=== PATIENT | female | born 1960 | race Caucasian/White ===

== ENCOUNTER 2017-07-28 14:07 | Emergency (ER) | payer BC ==
[~2017-07-28] VITALS: Ht 157.5 cm; Wt 103.5 kg
[2017-07-28 14:18] VITALS: BP 183/99; PULSE 81; RESP 16; TEMP 98.9; O2SAT 96
[2017-07-28] MEDS ORDERED: TETANUS/DIPHTHERIA TOXOID ADULT 0.5 ML VIAL IM ONE (15:15)
--- NOTE | 2017-07-28 15:57 | RADRPT ---
EXAM DATE/TIME: 07/28/2017 15:23 [facility] COMPARISON: No previous studies available for comparison. INDICATIONS : Fell today, right 5th finger pain MEDICAL HISTORY : None. SURGICAL HISTORY : None. ENCOUNTER: Initial ACUITY: 1 day PAIN SCORE: 4/10 LOCATION: Right 5th finger FINDINGS: Examination of the fifth digit of the right hand demonstrates no evidence of fracture or dislocation. No radiopaque foreign bodies are seen. There is mild soft tissue swelling at the base of the finger . CONCLUSION: Mild soft tissue swelling. No acute fracture or joint dislocation. Edvin Romano MD on July 28, 2017 at 15:55 Board Certified Radiologist. This report was verified electronically.
--- NOTE | 2017-07-28 15:58 | RADRPT ---
EXAM DATE/TIME: 07/28/2017 15:27 [facility] COMPARISON: No previous studies available for comparison. INDICATIONS : Right knee pain from fall today MEDICAL HISTORY : None. SURGICAL HISTORY : None. ENCOUNTER: Initial ACUITY: 1 day PAIN SCORE: 4/10 LOCATION: Right knee FINDINGS: The bony structures are grossly intact. There is moderate degenerative arthritis right knee joint wit h narrowing of the medial joint compartment. There is narrowing of the patellofemoral joint. No joint effusion is demonstrated. No acute fracture or joint dislocation. Soft tissues are unremarkable. CONCLUSION: 1. No acute fracture or joint dislocation. 2. Moderate primary degenerative arthritis with narrowing of the medial joint compartment. Edvin Romano MD on July 28, 2017 at 15:56 Board Certified Radiologist. This report was verified electronically.
--- NOTE | 2017-07-28 16:21 | PD ---
HPI Chief Complaint: Fall Time Seen by Provider: 15:09 Travel History International Travel<30 days: No Contact w/Intl Traveler<30days: No Traveled to known affect area: No History of Present Illness HPI 56-year-old female complains of laceration to the nose, right fifth finger pain and right knee pain. Patient fell this morning. Patient denies loss of consciousness. Patient denies any headache or neck pain. Patient denies any visual change. Patient denies any chest pain or shortness of breath. Patient denies abdominal pain. Patient denies any back pain. Patient went sharp pain localized to right fifth finger and diffusely over the anterior lateral aspect the right knee. Patient denies any focal weakness and numbness of extremity. Patient states that she is not up-to-date with TD booster. Patient states that her right fifth finger was out of joint and angulated sideway. Patient put it back together by herself. PFSH Past Medical History Medical History: Denies Significant Hx Diminished Hearing: No Tetanus Vaccination: Unknown ?: Not Social History Alcohol Use: Yes (RARE) Tobacco Use: No Substance Use: No Allergies-Medications (Allergen,Severity, Reaction): Coded Allergies: No Known Allergies (Unverified , 07/28/17) Reported Meds & Prescriptions Reported Meds & Active Scripts Active No Active Prescriptions or Reported Medications Review of Systems General / Constitutional: No: Fever Eyes: No: Visual changes HENT: No: Headaches Cardiovascular: No: Chest Pain or Discomfort Respiratory: No: Shortness of Breath Gastrointestinal: No: Abdominal Pain Genitourinary: No: Dysuria Musculoskeletal: Positive: Pain Skin: No Rash Neurologic: No: Weakness Psychiatric: No: Depression Endocrine: No: Polydipsia Hematologic/Lymphatic: No: Easy Bruising Physical Exam Narrative GENERAL: Well-nourished, well-developed patient. SKIN: Focused skin assessment warm/dry. HEAD: Normocephalic. EYES: No scleral icterus. No injection or drainage. NECK: Supple, trachea midline. No JVD or lymphadenopathy. CARDIOVASCULAR: Regular rate and rhythm without murmurs, gallops, or rubs. RESPIRATORY: Breath sounds equal bilaterally. No accessory muscle use. GASTROINTESTINAL: Abdomen soft, non-tender, nondistended. MUSCULOSKELETAL: Patient had ecchymosis swelling tenderness diffuse over the right fifth finger. Patient had mild tenderness on palpation prepatellar area of the right knee. Full range of motion knee. Knee joints stable. No effusion noted. BACK: Nontender without obvious deformity. No CVA tenderness. Patient has an evulsion laceration about 1 cm at the base of the bridge of the nose. Patient had multiple abrasions to the area of the nose and upper and lower lips and chin. No tenderness on palpation bony structure. Data Data Last Documented VS Vital Signs Date Time Temp Pulse Resp B/P (MAP) Pulse Ox O2 Delivery O2 Flow Rate FiO2 07/28/17 14:18 98.9 81 16 183/99 (127) 96 Orders Orders Tetanus/Diphtheria Tox Adult (Tetanus/Di (07/28/17 15:15) Finger ([id number]) (07/28/17 15:12) Knee, Ltd (1 Or 2vws) (07/28/17 15:12) MDM Medical Decision Making Medical Screen Exam Complete: Yes Emergency Medical Condition: Yes Interpretation(s) Last Impressions Knee X-Ray 07/28/17 1512 Signed Impressions: Service Date/Time: Friday, July 28, 2017 15:27 - CONCLUSION: 1. No acute fracture or joint dislocation. 2. Moderate primary degenerative arthritis with narrowing of the medial joint compartment. Edvin Romano MD Finger X-Ray 07/28/17 1512 Signed Impressions: Service Date/Time: Friday, July 28, 2017 15:23 - CONCLUSION: Mild soft tissue swelling. No acute fracture or joint dislocation. Edvin Romano MD Differential Diagnosis Differential diagnosis including laceration, abrasion, contusion, fracture, dislocation. Narrative Course 56-year-old female with facial injury, right fifth finger injury and right knee injury. TD booster given. Dermabond applied to the laceration to the nose. Procedures Procedure Narrative Saline wash. Dermabond applied to nose laceration. Diagnosis Primary Impression: Laceration of nose Qualified Codes: S01.21XA - Laceration without foreign body of nose, initial encounter Additional Impressions: Dislocation, finger closed Qualified Codes: S63.259A - Unspecified dislocation of unspecified finger, initial encounter Contusion of right knee Qualified Codes: S80.01XA - Contusion of right knee, initial encounter Patient Instructions: General Instructions Additional Instructions: Keep the wound clean and dry for 7 days. Take Advil Tylenol as needed for pain. Follow-up with orthopedist if persistent problem. Med/Other Pt SpecificInfo: Prescription(s) given Scripts No Active Prescriptions or Reported Meds Disposition: 01 DISCHARGE HOME Condition: Stable Angus Fernandes MD Jul 28, 2017 16:21
== END 2017-07-28 16:31 | disposition home or self-care (01) ==
LOC: PHEFT 14:07
DX: S01.21XA Laceration without foreign body of nose, initial encounter (principal); S63.259A Unspecified dislocation of unspecified finger, initial encounter; S80.01XA Contusion of right knee, initial encounter; Z23 Encounter for immunization; Z72.89 Other problems related to lifestyle; W19.XXXA Unspecified fall, initial encounter
CPT/HCPCS: 12011; 73140; 73560; 90471; 90714

== ENCOUNTER 2017-08-07 14:00 | Inpatient (IN) | payer BC ==
[~2017-08-07] VITALS: Ht 157.5 cm; Wt 111.9 kg
[2017-08-07] VITALS (7 sets, daily range): BP systolic 158–236; BP diastolic 80–109; PULSE 66–103; RESP 16–24; TEMP 99–103.1; O2SAT 95–97
--- NOTE | 2017-08-07 14:09 | PD ---
HPI Chief Complaint: right flank pain, fever Time Seen by Provider: 14:08 Travel History International Travel<30 days: No Contact w/Intl Traveler<30days: No Traveled to known affect area: No History of Present Illness HPI 56-year-old female came to the emergency room with history of right-sided flank pain that started last night. She is a diabetic. Patient said the pain was getting worse and hence she came to the emergency room. She was also getting fever and chills. Her temperature in the ER was 2.5. Patient appears to be uncomfortable. Pain is mostly in the right flank area and does not radiate much. It is just there at all times and gets worse when she tries to walk or lays on the side. No history of hematuria. [facility] Past Medical History Narrative Medical List of her past medical, surgical, social and family history is reviewed from the nursing note. Diminished Hearing: No Social History Alcohol Use: Yes (RARE) Tobacco Use: No Substance Use: No Allergies-Medications (Allergen,Severity, Reaction): Coded Allergies: No Known Allergies (Unverified , 07/28/17) Comments No known drug allergies Reported Meds & Prescriptions Reported Meds & Active Scripts Active Narrative Medication List of her home medications reviewed from the nursing note. Review of Systems Except as stated in HPI: all other systems reviewed are Neg General / Constitutional: Positive: Fever, Chills Genitourinary: Positive: Flank Pain Physical Exam Narrative GENERAL: Awake, alert, obese, moderate distress SKIN: Focused skin assessment warm/dry. Scabs on the bridge of his nose HEAD: Atraumatic. Normocephalic. EYES: Pupils equal and round. No scleral icterus. No injection or drainage. ENT: No nasal bleeding or discharge. Mucous membranes pink and moist. NECK: Trachea midline. No JVD. CARDIOVASCULAR: Regular rate and rhythm. No murmur appreciated. RESPIRATORY: No accessory muscle use. Clear to auscultation. Breath sounds equal bilaterally. GASTROINTESTINAL: Abdomen soft, non-tender, nondistended. Hepatic and splenic margins not palpable. significant right CVA tenderness MUSCULOSKELETAL: No obvious deformities. No clubbing. No cyanosis. No edema. NEUROLOGICAL: Awake and alert. No obvious cranial nerve deficits. Motor grossly within normal limits. Normal speech. PSYCHIATRIC: Appropriate mood and affect; insight and judgment normal. Data Data Last Documented VS Orders Orders Sepsis Workup Initiated (08/07/17 ) Complete Blood Count With Diff (08/07/17 14:14) Comprehensive Metabolic Panel (08/07/17 14:14) Lactic Acid Sepsis Protocol (08/07/17 14:14) Urinalysis - C+S If Indicated (08/07/17 14:14) Blood Culture (08/07/17 14:14) Chest, Single Ap (08/07/17 14:14) Blood Glucose (08/07/17 14:14) Ecg Monitoring (08/07/17 14:14) Iv Access Insert/Monitor (08/07/17 14:14) Oximetry (08/07/17 14:14) Oxygen Administration (08/07/17 14:14) Ct Abd/Pel W/O Iv Contrast (08/07/17 14:14) Sodium Chlor 0.9% 1000 Ml Inj (Ns 1000 M (08/07/17 14:14) Sodium Chlor 0.9% 1000 Ml Inj (Ns 1000 M (08/07/17 14:14) Sodium Chlor 0.9% 1000 Ml Inj (Ns 1000 M (08/07/17 14:14) Sodium Chlor 0.9% 1000 Ml Inj (Ns 1000 M (08/07/17 14:14) Ketorolac Inj (Toradol Inj) (08/07/17 14:15) Morphine Inj (Morphine Inj) (08/07/17 14:15) Ondansetron Inj (Zofran Inj) (08/07/17 14:15) Acetaminophen (Tylenol) (08/07/17 14:30) Influenzae A/B Antigen (08/07/17 15:01) ^ Straight Catheter (08/07/17 15:44) Ceftriaxone Inj (Rocephin Inj) (08/07/17 16:00) Urine Culture (08/07/17 15:50) Admit Order (Ed Use Only) (08/07/17 16:42) Labs Laboratory Tests Test 08/07/17 14:30 08/07/17 15:50 White Blood Count 9.6 TH/MM3 Red Blood Count 4.49 MIL/MM3 Hemoglobin 12.1 GM/DL Hematocrit 36.6 % Mean Corpuscular Volume 81.4 FL Mean Corpuscular Hemoglobin 27.0 PG Mean Corpuscular Hemoglobin Concent 33.1 % Red Cell Distribution Width 12.9 % Platelet Count 260 TH/MM3 Mean Platelet Volume 8.0 FL Neutrophils (%) (Auto) 81.4 % Lymphocytes (%) (Auto) 10.0 % Monocytes (%) (Auto) 6.4 % Eosinophils (%) (Auto) 0.0 % Basophils (%) (Auto) 2.2 % Neutrophils # (Auto) 7.8 TH/MM3 Lymphocytes # (Auto) 1.0 TH/MM3 Monocytes # (Auto) 0.6 TH/MM3 Eosinophils # (Auto) 0.0 TH/MM3 Basophils # (Auto) 0.2 TH/MM3 CBC Comment DIFF FINAL Differential Comment Blood Urea Nitrogen 9 MG/DL Creatinine 0.91 MG/DL Random Glucose 247 MG/DL Total Protein 7.9 GM/DL Albumin 3.3 GM/DL Calcium Level 8.6 MG/DL Alkaline Phosphatase 76 U/L Aspartate Amino Transf (AST/SGOT) 13 U/L Alanine Aminotransferase (ALT/SGPT) 19 U/L Total Bilirubin 0.8 MG/DL Sodium Level 131 MEQ/L Potassium Level 3.5 MEQ/L Chloride Level 97 MEQ/L Carbon Dioxide Level 25.8 MEQ/L Anion Gap 8 MEQ/L Estimat Glomerular Filtration Rate 64 ML/MIN Hemoglobin A1c 6.9 % Lactic Acid Level 1.9 mmol/L Urine Color YELLOW Urine Turbidity CLEAR Urine pH 6.0 Urine Specific [place] 1.016 Urine Protein 30 mg/dL Urine Glucose (UA) NEG mg/dL Urine Ketones NEG mg/dL Urine Occult Blood TRACE Urine Nitrite NEG Urine Bilirubin NEG Urine Leukocyte Esterase TRACE Urine RBC 0-3 /hpf Urine WBC 15-19 /hpf Urine WBC Clumps FEW Urine Squamous Epithelial Cells 0-5 /hpf Urine Bacteria FEW /hpf Microscopic Urinalysis Comment CATH-CULTURE IND [facility] Medical Decision Making Medical Screen Exam Complete: Yes Emergency Medical Condition: Yes Medical Record Reviewed: Yes Differential Diagnosis Sepsis, UTI, pyelonephritis, infected stone Narrative Course 2:52 PM blood test results are back. Patient has some hyperglycemia and the CBC shows left shift although total WBC is within normal limits. CT scan digestive of a recently passed stone. Waiting for the UA. Case will be signed over to the oncoming ER physician. Influenza was negative. Procedures EKG Prior to Arrival: No Scripts Ciprofloxacin (Cipro) 500 Mg Tab 500 MG PO Q12HR for Infection, #12 TAB Prov: Ilir Sheldon DO 08/10/17 Metformin ER (Metformin ER) 500 Mg Jacquelin 500 MG PO BID for Blood Sugar Management, #60 TAB 0 Refills With evening meal Prov: Ilir Sheldon DO 08/10/17 Lisinopril (Lisinopril) 10 Mg Tab 10 MG PO DAILY for Blood Pressure Management, #90 TAB 3 Refills Prov: Ilir Sheldon DO 08/10/17 Nifedipine ER 24 HR (Nifedipine ER 24 HR) 60 Mg Tab 60 MG PO DAILY for Blood Pressure Management, #90 TAB 3 Refills Prov: Ilir Sheldon DO 08/10/17 Naseem Parson MD Aug 07, 2017 14:08
[2017-08-07] MEDS ORDERED: SODIUM CHLOR 0.9% 1000 ML INJ 1,000 ML IV ONE ×3 (14:14)
[2017-08-07] MEDS ORDERED: SODIUM CHLOR 0.9% 1000 ML INJ 300 ML IV ONE (14:14)
[2017-08-07] MEDS ORDERED: ONDANSETRON HCL 4 MG/2 ML VIAL IV PUSH ONE (14:15)
[2017-08-07] MEDS ORDERED: MORPHINE SULFATE 4 MG/ML INJ IV PUSH ONE (14:15)
[2017-08-07] MEDS ORDERED: KETOROLAC TROMETHAMINE 30 MG/ML (IVP) VIAL IV PUSH ONE (14:15)
[2017-08-07] MEDS ORDERED: ACETAMINOPHEN 325 MG TAB PO ONE (14:30)
[2017-08-07 14:43] LABS: AUTOMATED NEUTROPHIL # 7.8 TH/MM3 (1.8-7.7); BASOPHIL # 0.2 TH/MM3 (0-0.2); BASOPHIL % 2.2 % (0.0-2.0); HEMATOCRIT 36.6 % (35.0-46.0); HEMO FLAGS DIFF FINAL; MEAN CELL VOLUME 81.4 FL (80.0-100.0); MEAN CORPUSCULAR HGB CONC 33.1 % (32.0-36.0); MONO % 6.4 % (0.0-8.0); NEUT % 81.4 % (16.0-70.0); PLATELET COUNT 260 TH/MM3 (150-450); RED BLOOD COUNT 4.49 MIL/MM3 (4.00-5.30); RED CELL DISTRIBUTION WIDTH 12.9 % (11.6-17.2); WHITE BLOOD COUNT 9.6 TH/MM3 (4.0-11.0)
--- NOTE | 2017-08-07 14:48 | RADRPT ---
EXAM DATE/TIME: 08/07/2017 14:32 [facility] COMPARISON: No previous studies available for comparison. INDICATIONS : Cough. MEDICAL HISTORY : None. SURGICAL HISTORY : None. ENCOUNTER: Initial ACUITY: 1 day PAIN SCORE: 0/10 LOCATION: Right chest FINDINGS: A single view of the chest demonstrates the lungs to be symmetrically aerated without evidence of mas s, infiltrate or effusion. The cardiomediastinal contours are unremarkable. Osseous structures are intact. CONCLUSION: 1. No acute cardiopulmonary disease. Benja Fisher MD on August 07, 2017 at 14:45 Board Certified Radiologist. This report was verified electronically.
[2017-08-07 14:55] LABS: CHLORIDE 97 MEQ/L (98-107); POTASSIUM 3.5 MEQ/L (3.5-5.1); SODIUM (NA) 131 MEQ/L (136-145)
[2017-08-07 14:59] LABS: ANION GAP 8 MEQ/L (5-15); BICARBONATE 25.8 MEQ/L (21.0-32.0); BLOOD UREA NITROGEN 9 MG/DL (7-18)
[2017-08-07 15:02] LABS: ALT (GPT) 19 U/L (10-53); AST (GOT) 13 U/L (15-37); GLOMERULAR FILTRATION RATE 64 ML/MIN (>89)
[2017-08-07 15:03] LABS: TOTAL BILIRUBIN ADULT 0.8 MG/DL (0.2-1.0)
[2017-08-07 15:05] LABS: ALKALINE PHOSPHATASE 76 U/L (45-117)
--- NOTE | 2017-08-07 15:48 | RADRPT ---
EXAM DATE/TIME: 08/07/2017 15:25 [facility] COMPARISON: No previous studies available for comparison. INDICATIONS : Right sided flank pain. ORAL CONTRAST: No oral contrast ingested. RADIATION DOSE: 21.39 CTDIvol (mGy) MEDICAL HISTORY : None SURGICAL HISTORY : Orthopedic surgery. ENCOUNTER: Initial ACUITY: 1 day PAIN SCALE: 5/10 LOCATION: Right flank TECHNIQUE: Volumetric scanning of the abdomen and pelvis was performed. Using automated exposure control and ad justment of the mA and/or kV according to patient size, radiation dose was kept as low as reasonably achievable to obtain optimal diagnostic quality images. DICOM format image data is available electro nically for review and comparison. FINDINGS: LOWER LUNGS: The visualized lower lungs are clear. LIVER: Homogeneous density without lesion. There is no dilation of the biliary tree. Cholecystectomy clips SPLEEN: Normal size without lesion. PANCREAS: Within normal limits. KIDNEYS: There is some mild stranding around the right kidney more than the left. There is a stone in the lowe r pole of the right kidney anteriorly. There is a large calcification stone in the lower pole left ki dney measuring 7 x 13 mm. There is slight prominence of the right renal collecting system. I do not s ee any stone down either ureter.. ADRENAL GLANDS: Within normal limits. VASCULAR: There is no aortic aneurysm. BOWEL/MESENTERY: The stomach, small bowel, and colon demonstrate no acute abnormality. There is no free intraperitone al air or fluid. ABDOMINAL WALL: Within normal limits. RETROPERITONEUM: There is no lymphadenopathy. BLADDER: No wall thickening or mass. REPRODUCTIVE: Within normal limits. INGUINAL: There is no lymphadenopathy or hernia. MUSCULOSKELETAL: Within normal limits for patient age. CONCLUSION: Some inflammatory changes around the right kidney may indicate a recently passed right renal calculus . There is one stone seen within the right kidney and a large stone in left kidney. I do not see any stones in the bladder. Rest of study is unremarkable status post cholecystectomy. Dominik Forrester MD on August 07, 2017 at 15:43 Board Certified Radiologist. This report was verified electronically.
[2017-08-07] MEDS ORDERED: cefTRIAXone INJ 1,000 MG in SODIUM CHLORIDE 0.9% INJ 100 ML IV ONE (16:00)
[2017-08-07 16:05] LABS: GLUCOSE,URINE NEG (NEG); KETONE, URINE NEG (NEG); NITRITE,URINE NEG (NEG)
[2017-08-07 16:16] LABS: BLOOD, URINE TRACE (NEG); URINE COLOR YELLOW (YELLW/STRAW)
[2017-08-07 16:17] LABS: RBC, URINE 0-3 /hpf (0-3); WBC, URINE 15-19 /hpf (0-5)
[2017-08-07 16:18] LABS: BACTERIA, URINE FEW /hpf; COMMENT (UR) CATH-CULTURE IND; CULTURE IF INDICATED CATH CULTURE IND; SQUAMOUS EPITHELIAL CELL URINE 0-5 /hpf (0-5)
[2017-08-07] MEDS ORDERED: PHENAZOPYRIDINE HCL 200 MG TAB PO PRN (16:45)
[2017-08-07] MEDS ORDERED: SODIUM CHLORIDE 0.9% FLUSH 10 ML FLUSH IV FLUSH PRN (16:45)
[2017-08-07] MEDS ORDERED: GLUCAGON 1 MG/ML VIAL OTHER PRN (16:45)
[2017-08-07] MEDS ORDERED: DEXTROSE 50% IN WATER 50 ML VIAL(D50) IV PUSH PRN (16:45)
[2017-08-07] MEDS ORDERED: ENALAPRILAT 1.25 MG/ML VIAL IV PUSH PRN (16:45)
[2017-08-07] MEDS ORDERED: ONDANSETRON HCL 4 MG/2 ML VIAL IV PUSH PRN (16:45)
--- NOTE | 2017-08-07 16:47 | PD ---
Data Data Last Documented VS Vital Signs Date Time Temp Pulse Resp B/P (MAP) Pulse Ox O2 Delivery O2 Flow Rate FiO2 08/07/17 15:55 100.8 80 20 192/96 (128) 95 Room Air Orders Orders Sepsis Workup Initiated (08/07/17 ) Complete Blood Count With Diff (08/07/17 14:14) Comprehensive Metabolic Panel (08/07/17 14:14) Lactic Acid Sepsis Protocol (08/07/17 14:14) Urinalysis - C+S If Indicated (08/07/17 14:14) Blood Culture (08/07/17 14:14) Chest, Single Ap (08/07/17 14:14) Blood Glucose (08/07/17 14:14) Ecg Monitoring (08/07/17 14:14) Iv Access Insert/Monitor (08/07/17 14:14) Oximetry (08/07/17 14:14) Oxygen Administration (08/07/17 14:14) Ct Abd/Pel W/O Iv Contrast (08/07/17 14:14) Sodium Chlor 0.9% 1000 Ml Inj (Ns 1000 M (08/07/17 14:14) Sodium Chlor 0.9% 1000 Ml Inj (Ns 1000 M (08/07/17 14:14) Sodium Chlor 0.9% 1000 Ml Inj (Ns 1000 M (08/07/17 14:14) Sodium Chlor 0.9% 1000 Ml Inj (Ns 1000 M (08/07/17 14:14) Ketorolac Inj (Toradol Inj) (08/07/17 14:15) Morphine Inj (Morphine Inj) (08/07/17 14:15) Ondansetron Inj (Zofran Inj) (08/07/17 14:15) Acetaminophen (Tylenol) (08/07/17 14:30) Influenzae A/B Antigen (08/07/17 15:01) ^ Straight Catheter (08/07/17 15:44) Ceftriaxone Inj (Rocephin Inj) (08/07/17 16:00) Urine Culture (08/07/17 15:50) Admit Order (Ed Use Only) (08/07/17 16:42) Labs Laboratory Tests Test 08/07/17 14:30 08/07/17 15:50 White Blood Count 9.6 TH/MM3 Red Blood Count 4.49 MIL/MM3 Hemoglobin 12.1 GM/DL Hematocrit 36.6 % Mean Corpuscular Volume 81.4 FL Mean Corpuscular Hemoglobin 27.0 PG Mean Corpuscular Hemoglobin Concent 33.1 % Red Cell Distribution Width 12.9 % Platelet Count 260 TH/MM3 Mean Platelet Volume 8.0 FL Neutrophils (%) (Auto) 81.4 % Lymphocytes (%) (Auto) 10.0 % Monocytes (%) (Auto) 6.4 % Eosinophils (%) (Auto) 0.0 % Basophils (%) (Auto) 2.2 % Neutrophils # (Auto) 7.8 TH/MM3 Lymphocytes # (Auto) 1.0 TH/MM3 Monocytes # (Auto) 0.6 TH/MM3 Eosinophils # (Auto) 0.0 TH/MM3 Basophils # (Auto) 0.2 TH/MM3 CBC Comment DIFF FINAL Differential Comment Blood Urea Nitrogen 9 MG/DL Creatinine 0.91 MG/DL Random Glucose 247 MG/DL Total Protein 7.9 GM/DL Albumin 3.3 GM/DL Calcium Level 8.6 MG/DL Alkaline Phosphatase 76 U/L Aspartate Amino Transf (AST/SGOT) 13 U/L Alanine Aminotransferase (ALT/SGPT) 19 U/L Total Bilirubin 0.8 MG/DL Sodium Level 131 MEQ/L Potassium Level 3.5 MEQ/L Chloride Level 97 MEQ/L Carbon Dioxide Level 25.8 MEQ/L Anion Gap 8 MEQ/L Estimat Glomerular Filtration Rate 64 ML/MIN Lactic Acid Level 1.9 mmol/L Urine Color YELLOW Urine Turbidity CLEAR Urine pH 6.0 Urine Specific [place] 1.016 Urine Protein 30 mg/dL Urine Glucose (UA) NEG mg/dL Urine Ketones NEG mg/dL Urine Occult Blood TRACE Urine Nitrite NEG Urine Bilirubin NEG Urine Leukocyte Esterase TRACE Urine RBC 0-3 /hpf Urine WBC 15-19 /hpf Urine WBC Clumps FEW Urine Squamous Epithelial Cells 0-5 /hpf Urine Bacteria FEW /hpf Microscopic Urinalysis Comment CATH-CULTURE IND MDM Supervised Visit with EDITA: No Narrative Course The patient was initially evaluated by the previous provider and signed out to me at the beginning of my shift pending UA and disposition. See her note for further details. Briefly this a 56-year-old female who presented with right flank pain and fever. Patient reports history of hypertension, however she is no longer on any antihypertensives. She recently moved here from [place] in February of this year and has no local physician. There is family history of diabetes, however she has never been diagnosed with diabetes. She was provided Rocephin, morphine , Toradol, and Tylenol by the previous provider. CBC is unremarkable. Chest x- ray shows no acute disease. CT abdomen pelvis shows some inflammatory changes around the right kidney with one stone within the right kidney and a large stone in the left kidney, no stones in the bladder. Rest of the study is unremarkable. Influenza is negative. UA is suggestive of UTI. On my assessment the patient is resting comfortably. She still complains of some right flank pain, however it is significantly improved. She is having some generalized weakness. Again she has never been diagnosed with diabetes, and her blood sugar today is 247. There is family history of diabetes. Initial blood pressure was 236/109, and after her pain was controlled, repeat blood pressure is 196/93. Patient meets SIRS criteria, and with pyelonephritis with new onset diabetes as well as uncontrolled blood pressure she'll be admitted for overnight observation for further treatment and evaluation. Case discussed with hospitalist AYLEEN Taylor. The patient will be admitted to their service under Dr. Sheldon. The patient was made aware of all findings and is amenable with this plan. Diagnosis Primary Impression: Pyelonephritis Additional Impressions: SIRS (systemic inflammatory response syndrome) Uncontrolled hypertension Hyperglycemia Admitting Information Admitting Physician Requests: Observation Scripts No Active Prescriptions or Reported Meds aRmses Moody MD Aug 07, 2017 16:47
[2017-08-07] MEDS ORDERED: MORPHINE SULFATE 4 MG/ML INJ IV PUSH PRN (17:00)
--- NOTE | 2017-08-07 18:07 | HHI.HP ---
HPI Service [facility] Primary Care Physician No Primary Care Physician Admission Diagnosis Pyelonephritis, SIRS, Hyperglycemia, Uncontrolled BP Diagnoses: Chief Complaint: Right flank pain, fever, chills. Travel History International Travel<30 Days: No Contact w/Intl Traveler <30 Da: No Traveled to Known Affected Are: No Sepsis Criteria SIRS Criteria (2 or more): Temp > 100.9 or < 96.8, Heart rate over 90 Sepsis Criteria (SIRS+source): Infect source susp/known Criteria Outcome: Meets SIRS criteria, Meets sepsis criteria History of Present Illness Ms. Cabral is a pleasant 56-year-old female with history of arthritis who presents to the emergency department on 08/07/2017 due to right flank pain, chills, subjective fever. Her symptoms started last night. She does not report any dysuria, hematuria. No recent antibiotics use. Nothing seems to make her symptoms better or worse. She reports mild pain on the left side as well. Patient denies any chest pain, shortness of breath, cough, abdominal pain. No nausea vomiting. Upon arrival WBC 9.6, hemoglobin 12.1. Sodium 131, potassium 3.5, creatinine 0.91. Random glucose 247. Temperature 103.1, pulse 103, respiration 24, blood pressure 236/109, O2 saturation 97% on room air. Blood pressure later improved to 159/84. CT abdomen shows inflammatory changes around the right kidney. Review of Systems Except as stated in HPI: all other systems reviewed are Neg Past Family Social History Past Medical History Arthritis Undiagnosed diabetes mellitus Past Surgical History Cholecystectomy, meniscus repair Reported Medications Neosporin topical Allergies: Coded Allergies: No Known Allergies (Unverified , 07/28/17) Family History Mother from myocardial infarction. Dad with diabetes. Social History Patient denies using tobacco or illicit drugs. She drinks socially. Physical Exam Vital Signs Vital Signs Date Time Temp Pulse Resp B/P (MAP) Pulse Ox O2 Delivery O2 Flow Rate FiO2 08/07/17 17:10 67 16 159/84 (109) 95 08/07/17 15:55 100.8 80 20 192/96 (128) 95 Room Air 08/07/17 15:17 95 08/07/17 15:08 103.1 82 18 196/93 (127) 95 08/07/17 14:05 103.1 103 24 236/109 (151) 97 Room Air Physical Exam GENERAL: This is a well-nourished, well-developed patient, in no apparent distress. SKIN: No rashes, ecchymoses or lesions. Warm and dry. HEAD: Atraumatic. Normocephalic. No temporal or scalp tenderness. EYES: Pupils equal round and reactive. No injection or drainage. ENT: Nose without bleeding, purulent drainage or septal hematoma. Airway patent. NECK: Trachea midline. No lymphadenopathy. Supple, nontender, no meningeal signs. CARDIOVASCULAR: Regular rate and rhythm without murmurs, gallops, or rubs. No JVD. RESPIRATORY: Clear to auscultation. Breath sounds equal bilaterally. No wheezes , rales, or rhonchi. GASTROINTESTINAL: Abdomen soft, non-tender, nondistended. No guarding. Right- sided CVA tenderness. MUSCULOSKELETAL: Extremities without clubbing, cyanosis, or edema. NEUROLOGICAL: Awake and alert. Cranial nerves II through XII intact. No focal neurological deficits. Normal speech. Laboratory Laboratory Tests Test 08/07/17 14:30 08/07/17 15:50 White Blood Count 9.6 Red Blood Count 4.49 Hemoglobin 12.1 Hematocrit 36.6 Mean Corpuscular Volume 81.4 Mean Corpuscular Hemoglobin 27.0 Mean Corpuscular Hemoglobin Concent 33.1 Red Cell Distribution Width 12.9 Platelet Count 260 Mean Platelet Volume 8.0 Neutrophils (%) (Auto) 81.4 Lymphocytes (%) (Auto) 10.0 Monocytes (%) (Auto) 6.4 Eosinophils (%) (Auto) 0.0 Basophils (%) (Auto) 2.2 Neutrophils # (Auto) 7.8 Lymphocytes # (Auto) 1.0 Monocytes # (Auto) 0.6 Eosinophils # (Auto) 0.0 Basophils # (Auto) 0.2 CBC Comment DIFF FINAL Differential Comment Blood Urea Nitrogen 9 Creatinine 0.91 Random Glucose 247 Total Protein 7.9 Albumin 3.3 Calcium Level 8.6 Alkaline Phosphatase 76 Aspartate Amino Transf (AST/SGOT) 13 Alanine Aminotransferase (ALT/SGPT) 19 Total Bilirubin 0.8 Sodium Level 131 Potassium Level 3.5 Chloride Level 97 Carbon Dioxide Level 25.8 Anion Gap 8 Estimat Glomerular Filtration Rate 64 Lactic Acid Level 1.9 Urine Color YELLOW Urine Turbidity CLEAR Urine pH 6.0 Urine Specific [place] 1.016 Urine Protein 30 Urine Glucose (UA) NEG Urine Ketones NEG Urine Occult Blood TRACE Urine Nitrite NEG Urine Bilirubin NEG Urine Leukocyte Esterase TRACE Urine RBC 0-3 Urine WBC 15-19 Urine WBC Clumps FEW Urine Squamous Epithelial Cells 0-5 Urine Bacteria FEW Microscopic Urinalysis Comment CATH-CULTURE IND Date/Time Source Procedure Growth Status 08/07/17 14:35 Blood Peripheral Aerobic Blood Culture Pending Received 08/07/17 14:35 Blood Peripheral Anaerobic Blood Culture Pending Received 08/07/17 15:08 Nasal Aspirate Influenza Types A,B Antigen (LETICIA) - Final NEGATIVE FOR FLU A AND B ANTIGEN.... Complete 08/07/17 15:50 Urine Catheterized Urine Urine Culture Pending Received Result Diagram: 08/07/17 1430 08/07/17 1430 Imaging Last Impressions Chest X-Ray 08/07/17 1414 Signed Impressions: Service Date/Time: Monday, August 07, 2017 14:32 - CONCLUSION: 1. No acute cardiopulmonary disease. Benja Fisher MD Abdomen/Pelvis CT 08/07/174 Signed Impressions: Service Date/Time: Monday, August 07, 2017 15:25 - CONCLUSION: Some inflammatory changes around the right kidney may indicate a recently passed right renal calculus. There is one stone seen within the right kidney and a large stone in left kidney. I do not see any stones in the bladder. Rest of study is unremarkable status post cholecystectomy. Dominik Forrester MD Caprini VTE Risk Assessment Caprini VTE Risk Assessment: Mod/High Risk (score >= 2) Caprini Risk Assessment Model Point Value = 1 Point Value = 2 Point Value = 3 Point Value = 5 Age 41-60 Minor surgery BMI > 25 kg/m2 Swollen legs Varicose veins or History of unexplained or recurrent spontaneous Oral contraceptives or hormone replacement Sepsis (< 1 month) Serious lung disease, including pneumonia (< 1 month) Abnormal pulmonary function Acute myocardial infarction Congestive heart failure (< 1 month) History of inflammatory bowel disease Medical patient at bed rest Age 61-74 Arthroscopic surgery Major open surgery (> 45 min) Laparoscopic surgery (> 45 min) Malignancy Confined to bed (> 72 hours) Immobilizing plaster cast Central venous access Age >= 75 History of VTE Family history of VTE Factor V Leiden Prothrombin [id number] Lupus anticoagulant Anticardiolipin antibodies Elevated serum homocysteine Heparin-induced thrombocytopenia Other congenital or acquired thrombophilia Stroke (< 1 month) Elective arthroplasty Hip, pelvis, or leg fracture Acute spinal cord injury (< 1 month) Prophylaxis Regimen Total Risk Factor Score Risk Level Prophylaxis Regimen 0-1 Low Early ambulation 2 Moderate Order ONE of the following: *Sequential Compression Device (SCD) *Heparin 5000 units SQ BID 3-4 Higher Order ONE of the following medications: *Heparin 5000 units SQ TID *Enoxaparin/Lovenox 40 mg SQ daily (WT < 150 kg, CrCl > 30 mL/min) *Enoxaparin/Lovenox 30 mg SQ daily (WT < 150 kg, CrCl > 10-29 mL/min) *Enoxaparin/Lovenox 30 mg SQ BID (WT < 150 kg, CrCl > 30 mL/min) AND/OR *Sequential Compression Device (SCD) 5 or more Highest Order ONE of the following medications: *Heparin 5000 units SQ TID (Preferred with Epidurals) *Enoxaparin/Lovenox 40 mg SQ daily (WT < 150 kg, CrCl > 30 mL/min) *Enoxaparin/Lovenox 30 mg SQ daily (WT < 150 kg, CrCl > 10-29 mL/min) *Enoxaparin/Lovenox 30 mg SQ BID (WT < 150 kg, CrCl > 30 mL/min) AND *Sequential Compression Device (SCD) Assessment and Plan Problem List: (1) Sepsis ICD Code: A41.9 - Sepsis, unspecified organism (2) Pyelonephritis ICD Code: N12 - Tubulo-interstitial nephritis, not specified as acute or chronic Status: Acute (3) Hyperglycemia ICD Code: R73.9 - Hyperglycemia, unspecified Status: Acute (4) Uncontrolled hypertension ICD Code: I10 - Essential (primary) hypertension Status: Acute Assessment and Plan Ms. Cabral is a pleasant 56-year-old female with a history of arthritis who presents to the emergency department due to one-day duration of right flank pain, chills, fever. In the ED workup indicated possible right sided pyelonephritis, sepsis with MAXIMUM TEMPERATURE 103.1F. - Sepsis (temperature 103.1F, pulse 103, respiration 24, suspected infection pyelonephritis) - Acute pyelonephritis - We'll start patient on cefepime 2 g every 12 hours. - Toradol and morphine for pain - Follow urine culture and blood cultures. - Continue normal saline at 100 cc per hour. - Uncontrolled hypertension - We started patient on lisinopril 10 mg daily. Blood pressure improved to 159/84. - If additional antihypertensives as needed we'll consider calcium channel roberth such as amlodipine or nifedipine. - Clonidine when necessary - Hyperglycemia - likely new onset diabetes mellitus. - We'll continue sliding scale insulin for now. Hemoglobin A1c pending. - We'll consider metformin upon discharge. Full code. Jazz. Physician Certification 2 Midnight Certification Type: Admission for Inpatient Services Order for Inpatient Services The services are ordered in accordance with Medicare regulations or non- Medicare payer requirements, as applicable. In the case of services not specified as inpatient-only, they are appropriately provided as inpatient services in accordance with the 2-midnight benchmark. Estimated LOS (days): 2 days is the estimated time the patient will need to remain in the hospital, assuming treatment plan goals are met and no additional complications. Post-Hospital Plan: Home Ilir Sheldon DO Aug 07, 2017 6:07 pm
[2017-08-07] MEDS: INSULIN ASPART SUPPLEMENTAL SCALE SQ SCH ×2 (18:56→21:00)
[2017-08-07] MEDS: LISINOPRIL 10 MG TAB PO SCH (19:02)
[2017-08-07] MEDS: ENOXAPARIN SODIUM 40 MG/0.4 ML SYRINGE SQ SCH (20:25)
[2017-08-07] MEDS: SODIUM CHLORIDE 0.9% FLUSH 10 ML FLUSH IV FLUSH SCH (20:25)
[2017-08-07] MEDS: SODIUM CHLOR 0.9% 1000 ML INJ 1,000 ML IV SCH (21:30)
[2017-08-07] MEDS: CEFEPIME INJ 2,000 MG in SODIUM CHLORIDE 0.9% INJ 100 ML IV SCH (21:30)
[2017-08-07] MEDS: KETOROLAC TROMETHAMINE 30 MG/ML (IVP) VIAL IV PUSH PRN (22:22)
[2017-08-08] VITALS (7 sets, daily range): BP systolic 133–215; BP diastolic 69–98; PULSE 72–95; RESP 18–20; TEMP 99.9–103.4; O2SAT 91–97
[2017-08-08] MEDS: SODIUM CHLOR 0.9% 1000 ML INJ 1,000 ML IV SCH (02:42)
[2017-08-08] MEDS: ACETAMINOPHEN 325 MG TAB PO PRN ×2 (05:05→13:21)
[2017-08-08] MEDS: cloNIDine HCL 0.1 MG TAB PO PRN ×2 (05:05→18:08)
[2017-08-08] MEDS: CEFEPIME INJ 2,000 MG in SODIUM CHLORIDE 0.9% INJ 100 ML IV SCH ×2 (05:05→17:32)
[2017-08-08 06:34] LABS: POTASSIUM 3.4 MEQ/L (3.5-5.1)
[2017-08-08 06:42] LABS: BASOPHIL % 0.1 % (0.0-2.0); EOSINOPHIL # 0.1 TH/MM3 (0-0.4); EOSINOPHIL % 1.1 % (0.0-4.0); HEMATOCRIT 31.5 % (35.0-46.0); HEMO FLAGS DIFF FINAL; LYMPH % 12.5 % (9.0-44.0); LYMPHOCYTE # 1.1 TH/MM3 (1.0-4.8); MEAN CORPUSCULAR HEMOGLOBIN 25.8 PG (27.0-34.0); MONO % 7.5 % (0.0-8.0); NEUT % 78.8 % (16.0-70.0); PLATELET COUNT 226 TH/MM3 (150-450); RED CELL DISTRIBUTION WIDTH 13.9 % (11.6-17.2); WHITE BLOOD COUNT 8.9 TH/MM3 (4.0-11.0)
[2017-08-08 06:59] LABS: BICARBONATE 20.9 MEQ/L (21.0-32.0)
[2017-08-08] MEDS: INSULIN ASPART SUPPLEMENTAL SCALE SQ SCH ×5 (08:00→21:25)
--- NOTE | 2017-08-08 09:06 | HHI.PR ---
Subjective Remarks Follow up for pyelonephritis. Patient is doing well now. However, overnight she had fever, chills. She reports no fever currently and her right flank pain is also much improved. Objective Vitals Vital Signs Date Time Temp Pulse Resp B/P (MAP) Pulse Ox O2 Delivery O2 Flow Rate FiO2 08/08/17 06:15 102.0 148/92 (110) 08/08/17 05:00 103.4 215/98 (137) 08/08/17 00:00 99.9 77 18 170/77 (108) 93 08/07/17 20:00 99.0 66 18 180/80 (113) 96 08/07/17 19:04 158/88 (111) 08/07/17 18:37 08/07/17 17:10 67 16 159/84 (109) 95 08/07/17 15:55 100.8 80 20 192/96 (128) 95 Room Air 08/07/17 15:17 95 08/07/17 15:08 103.1 82 18 196/93 (127) 95 08/07/17 14:05 103.1 103 24 236/109 (151) 97 Room Air I/O 08/07/17 08/07/17 08/07/17 08/08/17 08/08/17 08/08/17 07:00 15:00 23:00 07:00 15:00 23:00 Intake Total 4098 ml 953 ml Output Total 75 ml Balance 4023 ml 953 ml Intake IV Total 4098 ml 953 ml Output Urine Total 75 ml Result Diagram: 08/08/17 0545 08/08/17 0545 Imaging Last Impressions Chest X-Ray 08/07/171413 Signed Impressions: Service Date/Time: Monday, August 07, 2017 14:32 - CONCLUSION: 1. No acute cardiopulmonary disease. Benja Fisher MD Abdomen/Pelvis CT 08/07/171413 Signed Impressions: Service Date/Time: Monday, August 07, 2017 15:25 - CONCLUSION: Some inflammatory changes around the right kidney may indicate a recently passed right renal calculus. There is one stone seen within the right kidney and a large stone in left kidney. I do not see any stones in the bladder. Rest of study is unremarkable status post cholecystectomy. Dominik Forrester MD Objective Remarks GENERAL: Alert, Oriented x 3, NAD. SKIN: Warm and dry. HEAD: Normocephalic. EYES: No scleral icterus. No injection or drainage. NECK: Supple, trachea midline. No JVD or lymphadenopathy. CARDIOVASCULAR: Regular rate and rhythm without murmurs, gallops, or rubs. RESPIRATORY: Breath sounds equal bilaterally. No accessory muscle use. GASTROINTESTINAL: Abdomen soft, non-tender, nondistended. MUSCULOSKELETAL: No cyanosis, or edema. BACK: Nontender without obvious deformity. No CVA tenderness. Procedures None. A/P Problem List: (1) Sepsis ICD Code: A41.9 - Sepsis, unspecified organism (2) Pyelonephritis ICD Code: N12 - Tubulo-interstitial nephritis, not specified as acute or chronic Status: Acute (3) Hyperglycemia ICD Code: R73.9 - Hyperglycemia, unspecified Status: Acute (4) Uncontrolled hypertension ICD Code: I10 - Essential (primary) hypertension Status: Acute Assessment and Plan Ms. Cabral is a pleasant 56-year-old female with a history of arthritis who presents to the emergency department due to one-day duration of right flank pain, chills, fever. In the ED workup indicated possible right sided pyelonephritis, sepsis with MAXIMUM TEMPERATURE 103.1F. - Sepsis (temperature 103.1F, pulse 103, respiration 24, suspected infection pyelonephritis) - Acute pyelonephritis - We'll continue patient on cefepime 2 g every 12 hours. - Patient continues to have persistent fever. We'll consider carbapenems if Urine cx shows resistant organism. - Adjust antibiotics based upon urine culture. - Toradol and morphine for pain - Follow urine culture and blood cultures. - Continue normal saline at 100 cc per hour. - Uncontrolled hypertension - We started patient on lisinopril 10 mg daily. Blood pressure is persistently elevated. - We'll start patient on nifedipine 60 mg daily. - Clonidine when necessary - New onset diabetes mellitus. - Hemoglobin A1c 6.9. - We'll consider metformin upon discharge. -Continue sliding scale insulin. We'll start Levemir 7 units daily at bedtime. Full code. Lovenox. Ilir Sheldon DO Aug 08, 2017 9:06 am
[2017-08-08] MEDS: LISINOPRIL 10 MG TAB PO SCH (09:26)
[2017-08-08] MEDS: SODIUM CHLORIDE 0.9% FLUSH 10 ML FLUSH IV FLUSH SCH ×2 (09:27→21:22)
[2017-08-08 10:05] LABS: HEMOGLOBIN A1b 2.1 %; HEMOGLOBIN Ao 81.4 %; HEMOGLOBIN LA1C 3.2 %; HEMOGLOBIN P3 4.7 %
[2017-08-08] MEDS ORDERED: NIFEdipine 60 MG SUSTAINED RELEASE TAB PO ONE (18:15)
[2017-08-08] MEDS: INSULIN DETEMIR 100 UNITS/ML VIAL SQ SCH ×2 (21:00→21:25)
[2017-08-08] MEDS: ENOXAPARIN SODIUM 40 MG/0.4 ML SYRINGE SQ SCH (21:25)
[2017-08-09] VITALS (7 sets, daily range): BP systolic 131–158; BP diastolic 69–81; PULSE 83–98; RESP 18–22; TEMP 96.6–101.6; O2SAT 91–95
[2017-08-09] MEDS: ACETAMINOPHEN 325 MG TAB PO PRN ×2 (02:49→12:13)
[2017-08-09] MEDS: CEFEPIME INJ 2,000 MG in SODIUM CHLORIDE 0.9% INJ 100 ML IV SCH (05:31)
[2017-08-09] MEDS: LISINOPRIL 10 MG TAB PO SCH (08:39)
[2017-08-09] MEDS: NIFEdipine 60 MG SUSTAINED RELEASE TAB PO SCH (08:39)
[2017-08-09] MEDS: SODIUM CHLORIDE 0.9% FLUSH 10 ML FLUSH IV FLUSH SCH ×2 (08:39→23:00)
[2017-08-09] MEDS: INSULIN ASPART SUPPLEMENTAL SCALE SQ SCH ×4 (08:55→21:00)
[2017-08-09] MEDS: CIPROFLOXACIN 400 MG PREMIX 200 ML IV SCH ×2 (12:13→23:48)
--- NOTE | 2017-08-09 13:39 | HHI.PR ---
Subjective Remarks Follow up for pyelonephritis. Clinically patient is doing very well. She denies any acute concerns. In fact she says that she feels great area denies any right flank pain. She has been having persistent fever. Tolerating diet well. Objective Vitals Vital Signs Date Time Temp Pulse Resp B/P (MAP) Pulse Ox O2 Delivery O2 Flow Rate FiO2 08/09/17 07:30 99.4 83 20 131/78 (95) 94 08/09/17 02:52 101.3 08/09/17 00:00 101.6 98 18 132/81 (98) 91 08/08/17 20:00 101.6 95 18 133/69 (90) 91 08/08/17 15:50 100.6 72 20 174/86 (115) 97 I/O 08/08/17 08/08/17 08/08/17 08/09/17 08/09/17 08/09/17 07:00 15:00 23:00 07:00 15:00 23:00 Intake Total 953 ml 715 ml 340 ml Output Total 200 ml 500 ml 1000 ml Balance 953 ml -200 ml 215 ml -660 ml Intake Oral 715 ml 240 ml IV Total 953 ml 100 ml Output Urine Total 200 ml 500 ml 1000 ml # Voids 2 # Bowel Movements 0 Result Diagram: 08/08/17 0545 08/08/17 0545 Imaging Last Impressions Chest X-Ray 08/07/171413 Signed Impressions: Service Date/Time: Monday, August 07, 2017 14:32 - CONCLUSION: 1. No acute cardiopulmonary disease. Benja Fisher MD Abdomen/Pelvis CT 08/07/171413 Signed Impressions: Service Date/Time: Monday, August 07, 2017 15:25 - CONCLUSION: Some inflammatory changes around the right kidney may indicate a recently passed right renal calculus. There is one stone seen within the right kidney and a large stone in left kidney. I do not see any stones in the bladder. Rest of study is unremarkable status post cholecystectomy. Dominik Forrester MD Objective Remarks GENERAL: Alert, Oriented x 3, NAD. SKIN: Warm and dry. HEAD: Normocephalic. EYES: No scleral icterus. No injection or drainage. NECK: Supple, trachea midline. No JVD or lymphadenopathy. CARDIOVASCULAR: Regular rate and rhythm without murmurs, gallops, or rubs. RESPIRATORY: Breath sounds equal bilaterally. No accessory muscle use. GASTROINTESTINAL: Abdomen soft, non-tender, nondistended. MUSCULOSKELETAL: No cyanosis, or edema. BACK: Nontender without obvious deformity. No CVA tenderness. Procedures None. A/P Problem List: (1) Sepsis ICD Code: A41.9 - Sepsis, unspecified organism (2) Pyelonephritis ICD Code: N12 - Tubulo-interstitial nephritis, not specified as acute or chronic Status: Acute (3) Hyperglycemia ICD Code: R73.9 - Hyperglycemia, unspecified Status: Acute (4) Uncontrolled hypertension ICD Code: I10 - Essential (primary) hypertension Status: Acute Assessment and Plan Ms. Cabral is a pleasant 56-year-old female with a history of arthritis who presents to the emergency department due to one-day duration of right flank pain, chills, fever. In the ED workup indicated possible right sided pyelonephritis, sepsis with MAXIMUM TEMPERATURE 103.1F. - Sepsis (temperature 103.1F, pulse 103, respiration 24, suspected infection pyelonephritis) - Acute pyelonephritis - Urine culture positive for Escherichia coli sensitive to ceftriaxone and fluoroquinolones - Toradol and morphine for pain - We'll start patient on ciprofloxacin 400 mg IV twice a day. - Will switch to PO upon discharge. - Uncontrolled hypertension - Continue nifedipine 60 mg daily, lisinopril 10 mg daily. - Clonidine when necessary - New onset diabetes mellitus. - Hemoglobin A1c 6.9. - We'll consider metformin upon discharge. - Continue sliding scale insulin. We'll increase Levemir from 7 units to 10 units daily at bedtime Full code. Lovenox. Ilir Sheldon DO Aug 09, 2017 1:39 pm
[2017-08-09] MEDS: MUPIROCIN 2% CREAM 15 GM TOPICAL SCH ×2 (15:04→23:03)
[2017-08-09] MEDS: KETOROLAC TROMETHAMINE 30 MG/ML (IVP) VIAL IV PUSH PRN (18:43)
[2017-08-09] MEDS: ENOXAPARIN SODIUM 40 MG/0.4 ML SYRINGE SQ SCH (20:00)
[2017-08-09] MEDS: INSULIN DETEMIR 100 UNITS/ML VIAL SQ SCH (21:00)
[2017-08-10 06:17] LABS: AUTOMATED NEUTROPHIL # 8.5 TH/MM3 (1.8-7.7); BASOPHIL % 0.4 % (0.0-2.0); EOSINOPHIL % 0.3 % (0.0-4.0); HEMATOCRIT 32.3 % (35.0-46.0); HEMO FLAGS DIFF FINAL; LYMPHOCYTE # 1.4 TH/MM3 (1.0-4.8); MEAN CELL VOLUME 81.3 FL (80.0-100.0); MEAN CORPUSCULAR HGB CONC 33.2 % (32.0-36.0); MONO % 7.4 % (0.0-8.0); NEUT % 78.9 % (16.0-70.0); PLATELET COUNT 250 TH/MM3 (150-450); RED BLOOD COUNT 3.97 MIL/MM3 (4.00-5.30); RED CELL DISTRIBUTION WIDTH 13.4 % (11.6-17.2); WHITE BLOOD COUNT 10.7 TH/MM3 (4.0-11.0)
[2017-08-10 06:29] LABS: POTASSIUM 3.1 MEQ/L (3.5-5.1)
[2017-08-10 06:36] LABS: BICARBONATE 22.4 MEQ/L (21.0-32.0)
[2017-08-10 08:00] VITALS: BP 177/85; PULSE 105; RESP 20; TEMP 100.9; O2SAT 93
[2017-08-10] MEDS ORDERED: NIFE60TA8 PO (08:10)
[2017-08-10] MEDS ORDERED: LISI10TA3 PO (08:10)
[2017-08-10] MEDS ORDERED: METF500T4 PO (08:10)
[2017-08-10] MEDS: NIFEdipine 60 MG SUSTAINED RELEASE TAB PO SCH (08:26)
[2017-08-10] MEDS: ACETAMINOPHEN 325 MG TAB PO PRN (08:26)
[2017-08-10] MEDS: LISINOPRIL 10 MG TAB PO SCH (08:27)
[2017-08-10] MEDS: SODIUM CHLORIDE 0.9% FLUSH 10 ML FLUSH IV FLUSH SCH (08:27)
[2017-08-10] MEDS: MUPIROCIN 2% CREAM 15 GM TOPICAL SCH (08:33)
[2017-08-10] MEDS: INSULIN ASPART SUPPLEMENTAL SCALE SQ SCH (08:37)
[2017-08-10] MEDS ORDERED: CIPROFLOXACIN 500 MG TAB PO SCH (09:30)
--- NOTE | 2017-08-10 09:53 | HHI.PR ---
Subjective Remarks Follow up for pyelonephritis. Patient is doing very well. She continues to have persistent fever. However clinically she is significantly improved and feels that she is back to her baseline. She inquires about her diabetes management. Objective Vitals Vital Signs Date Time Temp Pulse Resp B/P (MAP) Pulse Ox O2 Delivery O2 Flow Rate FiO2 08/10/17 08:00 100.9 105 20 177/85 (115) 93 08/09/17 23:57 96.6 95 20 158/78 (104) 93 08/09/17 20:00 99.7 90 22 132/69 (90) 93 08/09/17 15:50 99.8 97 20 147/81 (103) 95 08/09/17 11:50 101.1 95 20 146/71 (96) 95 I/O 08/09/17 08/09/17 08/09/17 08/10/17 08/10/17 08/10/17 07:00 15:00 23:00 07:00 15:00 23:00 Intake Total 340 ml 200 ml 341 ml 680 ml Output Total 1000 ml 1050 ml 1200 ml Balance -660 ml 200 ml -709 ml -520 ml Intake Oral 240 ml 341 ml 480 ml IV Total 100 ml 200 ml 200 ml Output Urine Total 1000 ml 1050 ml 1200 ml # Voids 2 2 # Bowel Movements 1 0 Result Diagram: 08/10/17 0525 08/10/17 0525 Imaging Last Impressions Chest X-Ray 08/07/171413 Signed Impressions: Service Date/Time: Monday, August 07, 2017 14:32 - CONCLUSION: 1. No acute cardiopulmonary disease. Benja Fisher MD Abdomen/Pelvis CT 08/07/171413 Signed Impressions: Service Date/Time: Monday, August 07, 2017 15:25 - CONCLUSION: Some inflammatory changes around the right kidney may indicate a recently passed right renal calculus. There is one stone seen within the right kidney and a large stone in left kidney. I do not see any stones in the bladder. Rest of study is unremarkable status post cholecystectomy. Dominik Forrester MD Objective Remarks GENERAL: Alert, Oriented x 3, NAD. SKIN: Warm and dry. HEAD: Normocephalic. EYES: No scleral icterus. No injection or drainage. NECK: Supple, trachea midline. No JVD or lymphadenopathy. CARDIOVASCULAR: Regular rate and rhythm without murmurs, gallops, or rubs. RESPIRATORY: Breath sounds equal bilaterally. No accessory muscle use. GASTROINTESTINAL: Abdomen soft, non-tender, nondistended. MUSCULOSKELETAL: No cyanosis, or edema. BACK: Nontender without obvious deformity. No CVA tenderness. Procedures None. A/P Problem List: (1) Sepsis ICD Code: A41.9 - Sepsis, unspecified organism (2) Pyelonephritis ICD Code: N12 - Tubulo-interstitial nephritis, not specified as acute or chronic Status: Acute (3) Hyperglycemia ICD Code: R73.9 - Hyperglycemia, unspecified Status: Acute (4) Uncontrolled hypertension ICD Code: I10 - Essential (primary) hypertension Status: Acute Assessment and Plan Ms. Cabral is a pleasant 56-year-old female with a history of arthritis who presents to the emergency department due to one-day duration of right flank pain, chills, fever. In the ED workup indicated possible right sided pyelonephritis, sepsis with MAXIMUM TEMPERATURE 103.1F. - Sepsis (temperature 103.1F, pulse 103, respiration 24, suspected infection pyelonephritis) - Acute pyelonephritis - Urine culture positive for Escherichia coli sensitive to ceftriaxone and fluoroquinolones - Toradol and morphine for pain - D/C IV Cipro and start Levaquin 500mg BID. - CBC today shows no leukocytosis. - I believe her fever is likely due to medications. She has no clinical evidence of infection. - Uncontrolled hypertension - Continue nifedipine 60 mg daily, lisinopril 10 mg daily. - Clonidine when necessary - New onset diabetes mellitus. - Hemoglobin A1c 6.9. - We'll consider metformin upon discharge. - Continue sliding scale insulin. Levemir while she is in the hospital. - Recent nose injury (not this admission). - There is a recent small laceration over her nose. She was evaluated in the ED after a fall. Wound was cleaned and she was told it will take weeks for her nasal skin to be healed. There is no erythema or discharge. Full code. Lovenox. Discussed with patient and her at length. Patient is strongly advised to return to the hospital if she has any signs of infection. For her persistent fever, I advised her to continue abx and also take acetaminophen for symptom control. Patient agrees with this plan. Ilir Sheldon 22, 2017 9:53 am
[2017-08-10] MEDS ORDERED: CIPR-9 PO (09:54)
--- NOTE | 2017-08-10 09:57 | HHI.DS ---
Discharge Summary Admission Date Aug 07, 2017 at 4:51 pm Discharge Date: Aug 10, 2017 Admitting Diagnosis Pyelonephritis, SIRS, Hyperglycemia, Uncontrolled BP (1) Sepsis ICD Code: A41.9 - Sepsis, unspecified organism (2) Pyelonephritis ICD Code: N12 - Tubulo-interstitial nephritis, not specified as acute or chronic Status: Acute (3) Hyperglycemia ICD Code: R73.9 - Hyperglycemia, unspecified Status: Acute (4) Uncontrolled hypertension ICD Code: I10 - Essential (primary) hypertension Status: Acute Procedures None. Brief History - From Admission Ms. Cabral is a pleasant 56-year-old female with history of arthritis who presents to the emergency department on 08/07/2017 due to right flank pain, chills, subjective fever. Her symptoms started last night. She does not report any dysuria, hematuria. No recent antibiotics use. Nothing seems to make her symptoms better or worse. She reports mild pain on the left side as well. Patient denies any chest pain, shortness of breath, cough, abdominal pain. No nausea vomiting. Upon arrival WBC 9.6, hemoglobin 12.1. Sodium 131, potassium 3.5, creatinine 0.91. Random glucose 247. Temperature 103.1, pulse 103, respiration 24, blood pressure 236/109, O2 saturation 97% on room air. Blood pressure later improved to 159/84. CT abdomen shows inflammatory changes around the right kidney. CBC/BMP: 08/10/17 0525 08/10/17 0525 Significant Findings Laboratory Tests Test 08/07/17 14:30 08/07/17 15:50 08/08/17 05:45 08/10/17 05:25 Neutrophils (%) (Auto) 81.4 % (16.0-70.0) 78.8 % (16.0-70.0) 78.9 % (16.0-70.0) Basophils (%) (Auto) 2.2 % (0.0-2.0) Neutrophils # (Auto) 7.8 TH/MM3 (1.8-7.7) 8.5 TH/MM3 (1.8-7.7) Random Glucose 247 MG/DL (74-106) 176 MG/DL (74-106) 178 MG/DL (74-106) Albumin 3.3 GM/DL (3.4-5.0) Aspartate Amino Transf (AST/SGOT) 13 U/L (15-37) Sodium Level 131 MEQ/L (136-145) 134 MEQ/L (136-145) 135 MEQ/L (136-145) Chloride Level 97 MEQ/L (98-107) Estimat Glomerular Filtration Rate 64 ML/MIN (>89) 87 ML/MIN (>89) Hemoglobin A1c 6.9 % (4.3-6.0) Urine Protein 30 mg/dL (NEG-TRACE) Urine Occult Blood TRACE (NEG) Urine Leukocyte Esterase TRACE (NEG) Urine WBC 15-19 /hpf (0-5) Urine WBC Clumps FEW (NONE) Urine Bacteria FEW /hpf (NONE) Red Blood Count 3.80 MIL/MM3 (4.00-5.30) 3.97 MIL/MM3 (4.00-5.30) Hemoglobin 9.8 GM/DL (11.6-15.3) 10.7 GM/DL (11.6-15.3) Hematocrit 31.5 % (35.0-46.0) 32.3 % (35.0-46.0) Mean Corpuscular Hemoglobin 25.8 PG (27.0-34.0) Mean Corpuscular Hemoglobin Concent 31.0 % (32.0-36.0) Calcium Level 7.7 MG/DL (8.5-10.1) 8.3 MG/DL (8.5-10.1) Potassium Level 3.4 MEQ/L (3.5-5.1) 3.1 MEQ/L (3.5-5.1) Carbon Dioxide Level 20.9 MEQ/L (21.0-32.0) Imaging Last Impressions Chest X-Ray [id number]/07/[id number] Signed Impressions: Service Date/Time: Monday, August 07, 2017 14:32 - CONCLUSION: 1. No acute cardiopulmonary disease. Benja Fisher MD Abdomen/Pelvis CT [id number]/07/[id number] Signed Impressions: Service Date/Time: Monday, August 07, 2017 15:25 - CONCLUSION: Some inflammatory changes around the right kidney may indicate a recently passed right renal calculus. There is one stone seen within the right kidney and a large stone in left kidney. I do not see any stones in the bladder. Rest of study is unremarkable status post cholecystectomy. Dominik Forrester MD PE at Discharge GENERAL: Alert, Oriented x 3, NAD. SKIN: Warm and dry. HEAD: Normocephalic. EYES: No scleral icterus. No injection or drainage. NECK: Supple, trachea midline. No JVD or lymphadenopathy. CARDIOVASCULAR: Regular rate and rhythm without murmurs, gallops, or rubs. RESPIRATORY: Breath sounds equal bilaterally. No accessory muscle use. GASTROINTESTINAL: Abdomen soft, non-tender, nondistended. MUSCULOSKELETAL: No cyanosis, or edema. BACK: Nontender without obvious deformity. No CVA tenderness. Pt update on day of discharge Follow up for pyelonephritis. Patient is currently doing well. Clinically she is doing well. She feels very well. However, she continues to have persistent fever without any other clinical manifestation of an infectious process. She wants to go home. Hospital Course Ms. Cabral is a pleasant 56-year-old female with a history of arthritis who presents to the emergency department due to one-day duration of right flank pain, chills, fever. In the ED workup indicated possible right sided pyelonephritis, sepsis with MAXIMUM TEMPERATURE 103.1F. - Sepsis (temperature 103.1F, pulse 103, respiration 24, suspected infection pyelonephritis) - Acute pyelonephritis - Urine culture positive for Escherichia coli sensitive to ceftriaxone and fluoroquinolones - Toradol and morphine for pain - D/C IV Cipro and start Levaquin 500mg BID. - CBC today shows no leukocytosis. - I believe her fever is likely due to medications. She has no clinical evidence of infection. - I discussed at length with patient and her . I believe the best course of action would be for her to go home and finish abx course. IF she has any clinical deterioration, she is advised to come back to the hospital. However , as stated above, she feels great and clinically no evidence of any infectious process. Urine cx growing E. Coli which is sensitive to Cipro/Levaquin. - Uncontrolled hypertension - Continue nifedipine 60 mg daily, lisinopril 10 mg daily. - Clonidine when necessary while in the hospital. Medications can be adjusted by PCP. - New onset diabetes mellitus. - Hemoglobin A1c 6.9. - We'll start patient metformin upon discharge, can be titrated up by PCP. - Sliding scale insulin and Levemir while she is in the hospital. - Recent nose injury (not this admission). - There is a recent small laceration over her nose. She was evaluated in the ED after a fall. Wound was cleaned and she was told it will take weeks for her nasal skin to be healed. There is no erythema or discharge. Full code. Lovenox. Pt Condition on Discharge: Good Discharge Disposition: Discharge Home Discharge Time: > 30 minutes Discharge Instructions DIET: Follow Instructions for: Diabetic Diet Additional Diet Instructions: Eat one yogurt daily at least for the next two weeks. Activities you can perform: Regular-No Restrictions Follow up Referrals: PCP Follow-up - 2 Weeks New Orders: BASIC METABOLIC PROF - 2 Weeks HEMOGLOBIN A1C - 3 Months New Medications: Metformin ER (Metformin ER) 500 Mg Jacquelin 500 MG PO BID for Blood Sugar Management, #60 TAB 0 Refills With evening meal Ciprofloxacin (Cipro) 500 Mg Tab 500 MG PO Q12HR for Infection, #12 TAB Lisinopril (Lisinopril) 10 Mg Tab 10 MG PO DAILY for Blood Pressure Management, #90 TAB 3 Refills Nifedipine ER 24 HR (Nifedipine ER 24 HR) 60 Mg Tab 60 MG PO DAILY for Blood Pressure Management, #90 TAB 3 Refills Ilir Sheldon DO Aug 10, 2017 09:57
== END 2017-08-10 11:25 | disposition home or self-care (01) | DRG 872 ==
LOC: PHED 14:00 → PHEDA 16:43 → OBSVTOIN 16:51 → PH3B 18:30
PROVIDERS: ADMIT Hospitalist; ATTEND Hospitalist
DX: A41.9 Sepsis, unspecified organism (principal); E11.65 Type 2 diabetes mellitus with hyperglycemia; N10 Acute pyelonephritis; B96.20 Unspecified Escherichia coli [E. coli] as the cause of diseases classified elsewhere; I10 Essential (primary) hypertension; N20.0 Calculus of kidney; Z83.3 Family history of diabetes mellitus
CPT/HCPCS: 71010; 74176; 80048; 80053; 81001; 82948; 83036; 83605; 85025; 87040; 87077; 87086; 87186; 87804; 96361; 96365; 96375; J0692; J0696; J0744; J1650; J1815; J1885; J2270; J2405; J7030